=== PATIENT | female | born 1925 | race Caucasian/White ===

== ENCOUNTER → 2016-08-31 | Outpatient (CLI) | payer MEDICARE, BC ==
[~2016-08-31] MED LIST: ASPIRIN LO-DOSE81 MG PO; COREG25 MG PO; DELTASONE1 MG PO; DELTASONE5 MG PO; FOLIC ACID0.8 MG PO; LEVOTHROID (SY88 MCG PO; LIPITOR40 MG PO; MULTI VITAMIN1 EACH PO; PRILOSEC40 MG PO; PRINIVIL OR ZES10 MG PO; RHEUMATREX2.5 MG PO; VITAMIN D-32000 UNI1 PO; ZANTAC300 MG PO
== END | disposition disaster alternative care site (69) ==
LOC: GRAD 11:16
DX: N28.89 Other specified disorders of kidney and ureter (principal)